=== PATIENT | male | born 1970 | race American Indian/Alaskan Native ===

== ENCOUNTER 2020-05-22 09:03 | Emergency (ER) | payer MEDICAID ==
[2020-05-22 09:09] VITALS: BP 149/94
[2020-05-22] MEDS ORDERED: KETOROLAC 30 MG/1 ML INJ IM ONE (09:44)
--- NOTE | 2020-05-22 09:45 | Emergency Department Report ---
ED Male HPI - General Chief complaint: Urogenital-Male Stated complaint: LT GROWNING PAIN Time Seen by Provider: 05/22/20 09:40 Source: patient Mode of arrival: Ambulatory Limitations: No Limitations - History of Present Illness Initial comments: 49-year-old -[place] male presents to the emergency room stating that he has a hernia to his left groin. Patient stated he was seen by Mary a few weeks ago and was referred to general surgeon had other procedures that needed to be done not followed up with general surgeon. Patient presents here excruciating pain. He has not taken anything for pain prior to arrival. He has a past medical history of hypertension diabetes depression, bipolar, anxiety schizophrenia and high cholesterol. He has no surgical history. MD Complaint: groin pain - Related Data Home Medications Medication Instructions Recorded Confirmed Last Taken [place] 600 mg PO HS 04/20/13 03/20/16 08/29/15 Citalopram [Celexa] 60 mg PO QDAY 05/01/13 03/20/16 08/29/15 [place] 300 mg PO DAILY 05/01/13 03/20/16 08/29/15 Escitalopram [Lexapro] 10 mg PO DAILY 09/01/14 03/20/16 08/29/15 Trazodone HCl [traZODone] 150 mg PO QHS 09/01/14 03/20/16 08/29/15 glipiZIDE [Glucotrol Xl] 5 mg PO TID 09/01/14 03/20/16 08/29/15 metFORMIN [Glucophage] 500 mg PO BID 09/01/14 03/20/16 08/29/15 risperiDONE [RisperDAL] 1 mg PO QHS 09/01/14 03/20/16 08/29/15 lisinopriL [Zestril TAB] 10 mg PO QDAY 03/21/16 03/21/16 03/18/16 09:00 Previous Rx's Medication Instructions Recorded Last Taken Type Ibuprofen [Motrin 800 MG tab] 800 mg PO Q8HR PRN #30 tablet 05/22/20 Unknown Rx Allergies Allergy/AdvReac Type Severity Reaction Status Date / Time No Known Allergies Allergy Verified 08/29/15 12:47 ED Review of Systems ROS: Stated complaint: LT GROWNING PAIN Other details as noted in HPI ED Past Medical Hx - Past Medical History Previous Medical History?: No Hx Hypertension: Yes Hx Diabetes: Yes Hx Psychiatric Treatment: Yes Additional medical history: DEPRESSION,BIPOLAR,ANXIETY SCHIZOPHRENIA. HIGH CHOLESTEROL - Surgical History Past Surgical History?: No - Social History Smoking Status: Never Smoker Substance Use Type: None - Medications Home Medications: Home Medications Medication Instructions Recorded Confirmed Last Taken Type [place] 600 mg PO HS 04/20/13 03/20/16 08/29/15 History Citalopram [Celexa] 60 mg PO QDAY 05/01/13 03/20/16 08/29/15 History [place] 300 mg PO DAILY 05/01/13 03/20/16 08/29/15 History Escitalopram [Lexapro] 10 mg PO DAILY 09/01/14 03/20/16 08/29/15 History Trazodone HCl [traZODone] 150 mg PO QHS 09/01/14 03/20/16 08/29/15 History glipiZIDE [Glucotrol Xl] 5 mg PO TID 09/01/14 03/20/16 08/29/15 History metFORMIN [Glucophage] 500 mg PO BID 09/01/14 03/20/16 08/29/15 History risperiDONE [RisperDAL] 1 mg PO QHS 09/01/14 03/20/16 08/29/15 History lisinopriL [Zestril TAB] 10 mg PO QDAY 03/21/16 03/21/16 03/18/16 09:00 History Ibuprofen [Motrin 800 MG tab] 800 mg PO Q8HR PRN #30 tablet 05/22/20 Unknown Rx ED Physical Exam - General Limitations: No Limitations General appearance: alert, in distress - Head Head exam: Present: atraumatic, normocephalic - Eye Eye exam: Present: normal appearance - ENT ENT exam: Present: mucous membranes moist - GI/Abdominal GI/Abdominal exam: Present: soft. Absent: distended, tenderness - exam: Present: testicular tenderness, circumcision. Absent: urethral discharge, scrotal swelling External exam: Present: swelling (Left groin) - Extremities Exam Extremities exam: Present: normal inspection - Back Exam Back exam: Present: normal inspection - Neurological Exam Neurological exam: Present: alert, oriented X3 - Psychiatric Psychiatric exam: Present: normal affect, normal mood - Skin Skin exam: Present: warm, dry, intact, normal color. Absent: rash ED Course Vital Signs 05/22/20 09:06 Temperature 98.0 F Pulse Rate 99 H Respiratory 17 Rate Blood Pressure 149/94 O2 Sat by Pulse 97 Oximetry - Procedure Description Procedures done: Left side hernia able to reduce with minimal discomfort. No testicular involvement mild tenderness to the left testicle. ED Medical Decision Making - Medical Decision Making 49-year-old -[place] male presents to the emergency room stating that he has a hernia to his left groin. Patient stated he was seen by Mary a few weeks ago and was referred to general surgeon had other procedures that needed to be done not followed up with general surgeon. Patient presents here excruciating pain. He has not taken anything for pain prior to arrival. He has a past medical history of hypertension diabetes depression, bipolar, anxiety schizophrenia and high cholesterol. He has no surgical history. Critical care attestation.: If time is entered above; I have spent that time in minutes in the direct care of this critically ill patient, excluding procedure time. ED Disposition Clinical Impression: Left groin hernia Disposition: DC-01 TO HOME OR SELFCARE Is pt being admited?: No Does the pt Need Aspirin: No Condition: Stable Instructions: Inguinal Hernia (ED) Additional Instructions: Please take pain medication as needed. I recommend a jockstrap to help hold the testicles up so there will be dangling and pulling on the hernia site. I have referred you to to general surgeons as they are able to assist you. Please sure to eat with taking the Motrin. Prescriptions: Ibuprofen [Motrin 800 MG tab] 800 mg PO Q8HR PRN #30 tablet PRN Reason: Pain , Severe (7-10) Referrals: GHADA FINN MD [Staff Physician] - 3-5 Days DALIA ALEXANDRE MD [Staff Physician] - 3-5 Days Forms: Work/School Release Form(ED)
[2020-05-22] MEDS ORDERED: KETOROLAC 30 MG/1 ML INJ ONE (09:47)
== END 2020-05-22 09:58 | disposition home or self-care (01) ==
LOC: ED 09:03
DX: K40.90 Unilateral inguinal hernia, without obstruction or gangrene, not specified as recurrent (principal); I10 Essential (primary) hypertension; E11.9 Type 2 diabetes mellitus without complications; F25.0 Schizoaffective disorder, bipolar type; Z79.899 Other long term (current) drug therapy; Z98.890 Other specified postprocedural states
CPT/HCPCS: 96372; 99282; J1885

== ENCOUNTER 2020-10-16 12:09 | Emergency (ER) | payer MEDICAID ==
[2020-10-16 12:21] VITALS: BP 132/89
--- NOTE | 2020-10-16 12:53 | Emergency Department Report ---
Blank Doc - Documentation Documentation: 50-year male that presents with worsening left groin hernia. Exam: Unable to reduce left groin hernia. 1- This initial assessment/diagnostic orders/clinical plan/ treatment(s) is/are subject to change based on pt's health status, clinical progression and re- assessment by fellow clinical providers in the ED. Further treatment and workup at subsequent clinical provers discretion. Patient/guardians urged not to elope from ED as their condition may be serious if not clinically assessed and managed. 2-labs
== END 2020-10-16 14:00 ==
LOC: ED 12:09
DX: K46.9 Unspecified abdominal hernia without obstruction or gangrene (principal); Z53.21 Procedure and treatment not carried out due to patient leaving prior to being seen by health care provider
CPT/HCPCS: 99282

== ENCOUNTER 2022-03-25 12:44 | Emergency (ER) | payer MEDICAID ==
--- NOTE | 2022-03-25 16:33 | Emergency Department Report ---
ED Psych HPI - General Chief Complaint: Psych Stated Complaint: BLOOD PRESSURE, SUICIDAL THOUGHTS Time Seen by Provider: 03/25/22 16:27 Source: patient Mode of arrival: Ambulatory - History of Present Illness Initial Comments: 51-year-old -[place]oz[place] male who admits to using crack cocaine, complains now being suicidal. Says now he wants to take a knife and stab himself admits that he used cocaine today. admits to drinking occasional alcohol MD Complaint: suicidal ideation, feels depressed -: Gradual Associated Psychiatric Symptoms: depression, suicidal ideation History of same: Yes Quality: intermittent, getting worse Improves With: none Worsens With: none Context: recent alcohol abuse, recent drug abuse Associated Symptoms: denies other symptoms Treatments Prior to Arrival: none If Self Harm: admits thoughts of - Related Data Home Medications Medication Instructions Recorded Confirmed Last Taken [place] Carbonate 600 mg PO HS 04/20/13 03/20/16 08/29/15 Citalopram [Celexa] 60 mg PO QDAY 05/01/13 03/20/16 08/29/15 [place] Carbon[place] 300 mg PO DAILY 05/01/13 03/20/16 08/29/15 Escitalopram [Lexapro] 10 mg PO DAILY 09/01/14 03/20/16 08/29/15 Trazodone HCl [traZODone] 150 mg PO QHS 09/01/14 03/20/16 08/29/15 glipiZIDE [Glucotrol Xl] 5 mg PO TID 09/01/14 03/20/16 08/29/15 metFORMIN [Glucophage] 500 mg PO BID 09/01/14 03/20/16 08/29/15 risperiDONE [RisperDAL] 1 mg PO QHS 09/01/14 03/20/16 08/29/15 lisinopriL [Zestril TAB] 10 mg PO QDAY 03/21/16 03/21/16 03/18/16 09:00 Previous Rx's Medication Instructions Recorded Last Taken Type Ibuprofen [Motrin 800 MG tab] 800 mg PO Q8HR PRN #30 tablet 05/22/[address] [DepaKOTE DR] 125 mg PO BID #60 tablet 03/28/22 Unknown Rx Escitalopram Oxalate [Lexapro] 5 mg PO QDAY #30 03/28/22 Unknown Rx Trazodone HCl 50 mg PO QHS #30 03/28/22 Unknown Rx risperiDONE [RisperDAL] 1 mg PO BID #60 03/28/22 Unknown Rx Allergies Allergy/AdvReac Type Severity Reaction Status Date / Time No Known Allergies Allergy Verified 08/29/15 12:47 ED Review of Systems ROS: Stated complaint: BLOOD PRESSURE, SUICIDAL THOUGHTS Other details as noted in HPI Constitutional: no symptoms reported Eyes: as per HPI ENT: as per HPI Respiratory: no symptoms reported Cardiovascular: as per HPI Endocrine: no symptoms reported Gastrointestinal: as per HPI Genitourinary: as per HPI Musculoskeletal: as per HPI Skin: as per HPI Neurological: as per HPI Psychiatric: as per HPI, suicidal thoughts ED Past Medical Hx - Past Medical History Hx Hypertension: Yes Hx Diabetes: Yes Hx Psychiatric Treatment: Yes Additional medical history: DEPRESSION,BIPOLAR,ANXIETY SCHIZOPHRENIA. HIGH CHOLESTEROL - Social History Smoking Status: Never Smoker Substance Use Type: None - Medications Home Medications: Home Medications Medication Instructions Recorded Confirmed Last Taken Type [place] Carbonate 600 mg PO HS 04/20/13 03/20/16 08/29/15 History Citalopram [Celexa] 60 mg PO QDAY 05/01/13 03/20/16 08/29/15 History [place] Carbon[place] 300 mg PO DAILY 05/01/13 03/20/16 08/29/15 History Escitalopram [Lexapro] 10 mg PO DAILY 09/01/14 03/20/16 08/29/15 History Trazodone HCl [traZODone] 150 mg PO QHS 09/01/14 03/20/16 08/29/15 History glipiZIDE [Glucotrol Xl] 5 mg PO TID 09/01/14 03/20/16 08/29/15 History metFORMIN [Glucophage] 500 mg PO BID 09/01/14 03/20/16 08/29/15 History risperiDONE [RisperDAL] 1 mg PO QHS 09/01/14 03/20/16 08/29/15 History lisinopriL [Zestril TAB] 10 mg PO QDAY 03/21/16 03/21/16 03/18/16 09:00 History Ibuprofen [Motrin 800 MG tab] 800 mg PO Q8HR PRN #30 tablet 05/22/[address] [DepaKOTE DR] 125 mg PO BID #60 tablet 03/28/22 Unknown Rx Escitalopram Oxalate [Lexapro] 5 mg PO QDAY #30 03/28/22 Unknown Rx Trazodone HCl 50 mg PO QHS #30 03/28/22 Unknown Rx risperiDONE [RisperDAL] 1 mg PO BID #60 03/28/22 Unknown Rx ED Physical Exam - General Limitations: No Limitations General appearance: alert, in no apparent distress - Head Head exam: Present: atraumatic, normocephalic - Eye Eye exam: Present: normal appearance - ENT ENT exam: Present: mucous membranes moist - Neck Neck exam: Present: normal inspection - Respiratory Respiratory exam: Present: normal lung sounds bilaterally. Absent: respiratory distress - Cardiovascular Cardiovascular Exam: Present: regular rate, normal rhythm. Absent: systolic murmur, diastolic murmur, rubs, gallop - GI/Abdominal GI/Abdominal exam: Present: soft, normal bowel sounds - Rectal Rectal exam: Present: deferred - Extremities Exam Extremities exam: Present: normal inspection - Back Exam Back exam: Present: normal inspection - Neurological Exam Neurological exam: Present: alert, oriented X3 - Psychiatric Psychiatric exam: Present: normal affect, normal mood - Skin Skin exam: Present: warm, dry, intact, normal color. Absent: rash ED Course Vital Signs 03/25/22 03/25/22 03/26/22 14:38 23:59 00:01 Temperature 98.6 F 98.4 F Pulse Rate 89 99 H Respiratory 20 Rate Blood Pressure 123/88 114/71 [Right] O2 Sat by Pulse 100 99 99 Oximetry 03/26/22 03/26/22 03/27/22 10:23 22:16 13:11 Temperature 98.4 F 98.8 F Pulse Rate 90 90 Respiratory 18 16 Rate Blood Pressure 119/89 121/87 [Right] O2 Sat by Pulse 100 99 97 Oximetry 03/27/22 03/28/22 20:07 10:58 Temperature 98.3 F 98.4 F Pulse Rate 110 H 104 H Respiratory 12 18 Rate Blood Pressure 128/86 107/74 [Right] O2 Sat by Pulse 99 98 Oximetry ED Medical Decision Making - Lab Data Result diagrams: 03/25/22 16:40 03/25/22 16:40 Critical care attestation.: If time is entered above; I have spent that time in minutes in the direct care of this critically ill patient, excluding procedure time. ED Disposition Clinical Impression: Schizophrenia, Cocaine abuse Disposition: HOME / SELF CARE / HOMELESS Is pt being admited?: No Does the pt Need Aspirin: No Condition: Stable Additional Instructions: Per psych provider, Penelope Carbajal, pt has been cleared by psych. Outpatient resources placed in d/c instructions. Professional and Agency Contacts To help [facility](06/03) [place] Crisis Line: Suicide Prevention Line: Crisis Text Line: Text START to 328773 Emergency: 911 Outpatient [facility] Behavioral Health Resources: [place]: [facility] [address] [place], [place] [address] [place]: [facility] [facility] [address] [place] [address] [facility] - [address] [place] [address] Monday thru Monday - 8am - 5pm [facility] Service Address: [address] [place] [address] [place]: [facility] Address: [address] [place] [address] Monday thru Monday- 7am-2pm [facility] Address: [address] [place] [address] Monday thru Monday: 8:30AM-5PM OUTPATIENT MENTAL HEALTH RESOURCES [facility], [facility] Roseanne Pacheco MD: [address] [facility] [address] [place] [address] [place] [address] [facility]: [facility] [address] [place] [address] [place] [address] [phone] [facility]: [facility] Healthcare: [address] [place] [address] [address] [place] [address] [place] [address] [facility] [id number] [facility]: Shreyas Ruggiero MD: [address] [facility] [address] [facility] [id number] [facility]: [address] [place] [address] [phone] [place] CRISIS AND ACCESS LINE: In case of an emergency, please contact the following numbers: [place] Crisis and Access Line: Number: Crisis Text Line: (Text START) Number: 862334 Suicide Prevention Line: Number: Emergency Number: 911 SUBSTANCE ABUSE PROGRAMS: [facility]: Location: [place], [place] [facility] Address: [address] [place] [address] [facility]: Address: [address] [place] [address] [facility]: Address: [address] [place] [address] [facility]: Address: [address] [place] [address] [facility] Address: [address] [place] [address]. Please contact above numbers to attempt placement into free based program. Medicaid Programs: [facility]: Address: [address] [place] [address] [facility]: Address: [address] [place] [address] Prescriptions: Trazodone HCl 50 mg PO QHS #[address] [DepaKOTE DR] 125 mg PO BID #60 tablet Escitalopram Oxalate [Lexapro] 5 mg PO QDAY #30 risperiDONE [RisperDAL] 1 mg PO BID #60 Referrals: ASHLEY LOREDO MD [Primary Care Provider] - 3-5 Days
[2022-03-25 16:55] LABS: Basophils % (Auto) 0.3 % (0.0-1.8); Eosinophils # (Auto) 0.1 K/mm3 (0.0-0.4); Eosinophils % (Auto) 1.7 % (0.0-4.3); Hematocrit 38.2 % (35.5-45.6); Hemoglobin 13.3 gm/dl (11.8-15.2); Lymphocytes # (Auto) 2.7 K/mm3 (1.2-5.4); Lymphocytes % (Auto) 40.1 % (13.4-35.0); Mean Corpuscular HGB Conc 35 % (32-34); Mean Corpuscular Volume 84 fl (84-94); Monocytes # (Auto) 0.7 K/mm3 (0.0-0.8); Monocytes % (Auto) 11.2 % (0.0-7.3); Platelet Count 289 K/mm3 (140-440); Red Blood Count 4.55 M/mm3 (3.65-5.03); Red Cell Distribution Width 13.3 % (13.2-15.2)
[2022-03-25 17:15] LABS: Alanine Aminotransferase 22 units/L (7-56); Albumin 4.5 g/dL (3.9-5); Blood Urea Nitrogen 14 mg/dL (9-20); Calcium 9.1 mg/dL (8.4-10.2); Hemolysis Index 27
[2022-03-25 17:17] LABS: BUN/Creatinine Ratio 20
[2022-03-26 00:21] LABS: Amphetamine Screen,Urine PRESUMPTIVE NEGATIVE; Benzodiazepines Screen,Urine PRESUMPTIVE NEGATIVE; Cannabinoid Screen,Urine PRESUMPTIVE NEGATIVE; Cocaine Screen,Urine PRESUMPTIVE POSITIVE; Methadone Screen,Urine PRESUMPTIVE NEGATIVE; Opiate Screen,Urine PRESUMPTIVE NEGATIVE
--- NOTE | 2022-03-26 10:02 | Consultation ---
History of Present Illness - Reason for Consult Consult date: 03/26/22 Reason for consult: SI, drug use - History of Present Psychiatric Illness The patient was seen today. He reports relapse on cocaine, severe depression, hallucinations, and suicidal thoughts with a plan to stab himself. He appears anxious. The patient says "I was doing real good. I was doing good and then this happened. I can not live like this. I just can't." The patient says he is very depressed. He says he has been hearing voices for the past two days. He says "a bunch of chatter, it is doing something to my head. I can't think." He says he has a history of PTSD, Bipolar, and Schizophrenia. The patient says he's been off his meds for about two months. He could not recall his meds. He says "I need something to help me. I can't do this by myself." Will start the patient on medication and recommend psychiatric inpatient treatment to stabilize him on meds. PAST PSYCHIATRIC HISTORY: Diagnoses: Schizophrenia, Bipolar Suicide attempts or Self-harm behavior: Denies Prior psychiatric hospitalizations: Yes Substance Abuse history: Crack Previous psychiatric medications tried: Could not recall Outpatient treatment: not in a few months PAST MEDICAL HISTORY: None reported Family Psychiatric History: None reported or documented SOCIAL HISTORY Marital Status: Single Living Arrangements: homeless Employment Status: Unemployed Access to guns/weapons: Denies Education: high school History of Abuse: Denies Legal History: Denies REVIEW OF SYSTEMS Constitutional: Negative for weight loss ENT: Negative for stridor Respiratory: Negative for cough or hemoptysis All other systems reviewed and are negative MENTAL STATUS General Appearance and Behavior: age appropriate, good eye contact, guarded Cooperation: Cooperative Psychomotor Behavior: within normal limits Mood: depressed Affect and affective range: Congruent with stated mood Thought Process: goal directed Thought Content: hallucinations, hopelessness, helplessness Speech: Normal tone and pace Suicidal Ideation: Yes Homicidal Ideation: Denies Hallucinations: Yes Delusions: None elicited Impulse Control: poor Insight and Judgment: Limited Memory: Limited Attention: Distracted Orientation: alert and oriented Diagnoses Schizophrenia Cocaine Use Disorder with Substance Induced Mood Treatment Plan 1013 Risperidone 0.5mg po BID Depakote DR 125mg po BID Trazodone 50mg po qhs Medical: per primary Disposition: recommend acute psychiatric treatment Will follow. Thanks Case staffed with Dr. Ewing Medications and Allergies Allergies Allergy/AdvReac Type Severity Reaction Status Date / Time No Known Allergies Allergy Verified 08/29/15 12:47 Home Medications Medication Instructions Recorded Confirmed Last Taken Type [place] Carbonate 600 mg PO HS 04/20/13 03/20/16 08/29/15 History Citalopram [Celexa] 60 mg PO QDAY 05/01/13 03/20/16 08/29/15 History [place] Carbonate 300 mg PO DAILY 05/01/13 03/20/16 08/29/15 History Escitalopram [Lexapro] 10 mg PO DAILY 09/01/14 03/20/16 08/29/15 History Trazodone HCl [traZODone] 150 mg PO QHS 09/01/14 03/20/16 08/29/15 History glipiZIDE [Glucotrol Xl] 5 mg PO TID 09/01/14 03/20/16 08/29/15 History metFORMIN [Glucophage] 500 mg PO BID 09/01/14 03/20/16 08/29/15 History risperiDONE [RisperDAL] 1 mg PO QHS 09/01/14 03/20/16 08/29/15 History lisinopriL [Zestril TAB] 10 mg PO QDAY 03/21/16 03/21/16 03/18/16 09:00 History Ibuprofen [Motrin 800 MG tab] 800 mg PO Q8HR PRN #30 tablet 05/22/20 Unknown Rx Mental Status Exam - Vital signs Last Vital Signs Temp 98.4 F 03/25/22 23:59 Pulse 99 H 03/25/22 23:59 Resp 20 03/25/22 23:59 BP 114/71 03/25/22 23:59 Pulse Ox 99 03/26/22 00:01 Results Result Diagrams: 03/25/22 16:40 03/25/22 16:40 Abnormal lab results 03/25/22 03/25/22 Range/Units 16:40 16:40 MCHC 35 H (32-34) % Lymph % (Auto) 40.1 H (13.4-35.0) % [place] % (Auto) 11.2 H (0.0-7.3) % Sodium 135 L (137-145) mmol/L Chloride 94.4 L (98-107) mmol/L Creatinine 0.7 L (0.8-1.3) mg/dL Glucose 244 H (75-100) mg/dL All other labs normal.
[2022-03-26] MEDS: DIVALPROEX DR 125 MG TAB PO SCH ×2 (10:53→22:34)
[2022-03-26] MEDS: risperiDONE 0.25 MG TAB PO SCH ×2 (10:53→22:34)
[2022-03-26] MEDS ORDERED: DEXTROSE 50% IN WATER (25GM) 50 ML SYRINGE IV PRN (15:31)
[2022-03-26] MEDS ORDERED: LORazepam 2 MG/ML VIAL IM PRN (15:32)
--- NOTE | 2022-03-26 15:33 | Event Note ---
Date: 03/26/22 The patient was evaluated in the emergency department for symptoms described in the history of present illness. He/she was evaluated in the context of the global COVID-19 pandemic, which necessitated consideration that the patient might be at risk for infection with the virus that causes COVID-19. Institutional protocols and algorithms that pertain to the evaluation of patients at risk for COVID-19 are in a state of rapid change based on information released by regulatory bodies including the CDC and federal and state organizations. These policies and algorithms were followed during the patient's care in the emergency department. Please note that these policies, procedures and recommendations changed on a rapid basis. Laboratory studies, vital signs, nursing documentation, ER documentation, and psychiatric documentation are reviewed and appreciated. Nursing team reports no acute events this morning or concerns. The patient is awake and ambulating and does not appear to be in any acute distress. Diabetic diet ordered. Sliding scale insulin ordered. Have requested that nursing team reconcile home medications. Tylenol aspirin and lithium levels were not ordered yesterday. We will add these on. Patient otherwise resting comfortably, and does not appear to be in any acute distress Vital Signs 03/25/22 03/25/22 03/26/22 14:38 23:59 00:01 Temperature 98.6 F 98.4 F Pulse Rate 89 99 H Respiratory 20 Rate Blood Pressure 123/88 114/71 [Right] O2 Sat by Pulse 100 99 99 Oximetry 03/26/22 10:23 Temperature 98.4 F Pulse Rate 90 Respiratory 18 Rate Blood Pressure 119/89 [Right] O2 Sat by Pulse 100 Oximetry Lab Results 03/25/22 03/25/22 03/25/22 Range/Units 16:40 16:40 16:40 WBC 6.7 (4.5-11.0) K/mm3 RBC 4.55 (3.65-5.03) M/mm3 Hgb 13.3 (11.8-15.2) gm/dl Hct 38.2 (35.5-45.6) % MCV 84 (84-94) fl MCH 29 (28-32) pg MCHC 35 H (32-34) % RDW 13.3 (13.2-15.2) % Plt Count 289 (140-440) K/mm3 Lymph % (Auto) 40.1 H (13.4-35.0) % [place] % (Auto) 11.2 H (0.0-7.3) % Eos % (Auto) 1.7 (0.0-4.3) % Baso % (Auto) 0.3 (0.0-1.8) % Lymph # (Auto) 2.7 (1.2-5.4) K/mm3 [place] # (Auto) 0.7 (0.0-0.8) K/mm3 Eos # (Auto) 0.1 (0.0-0.4) K/mm3 Baso # (Auto) 0.0 (0.0-0.1) K/mm3 Seg Neutrophils % 46.7 (40.0-70.0) % Seg Neutrophils # 3.1 (1.8-7.7) K/mm3 Sodium 135 L (137-145) mmol/L Potassium 4.4 (3.6-5.0) mmol/L Chloride 94.4 L (98-107) mmol/L Carbon Dioxide 25 (22-30) mmol/L Anion Gap 20 mmol/L BUN 14 (9-20) mg/dL Creatinine 0.7 L (0.8-1.3) mg/dL Estimated GFR > 60 ml/min BUN/Creatinine Ratio 20 % Glucose 244 H (75-100) mg/dL Calcium 9.1 (8.4-10.2) mg/dL Total Bilirubin 1.10 (0.1-1.2) mg/dL AST 24 (5-40) units/L ALT 22 (7-56) units/L Alkaline Phosphatase 112 (35-129) units/L Total Protein 7.4 (6.3-8.2) g/dL Albumin 4.5 (3.9-5) g/dL Albumin/Globulin Ratio 1.6 % Urine Opiates Screen Urine Methadone Screen Ur Barbiturates Screen Ur Phencyclidine Scrn Ur Amphetamines Screen U Benzodiazepines Scrn Urine Cocaine Screen U Marijuana (THC) Screen Drugs of Abuse Note Plasma/Serum Alcohol < 0.01 (0-0.07) % Coronavirus (PCR) (Negative) 03/26/22 03/26/22 Range/Units 00:01 09:40 WBC (4.5-11.0) K/mm3 RBC (3.65-5.03) M/mm3 Hgb (11.8-15.2) gm/dl Hct (35.5-45.6) % MCV (84-94) fl MCH (28-32) pg MCHC (32-34) % RDW (13.2-15.2) % Plt Count (140-440) K/mm3 Lymph % (Auto) (13.4-35.0) % [place] % (Auto) (0.0-7.3) % Eos % (Auto) (0.0-4.3) % Baso % (Auto) (0.0-1.8) % Lymph # (Auto) (1.2-5.4) K/mm3 [place] # (Auto) (0.0-0.8) K/mm3 Eos # (Auto) (0.0-0.4) K/mm3 Baso # (Auto) (0.0-0.1) K/mm3 Seg Neutrophils % (40.0-70.0) % Seg Neutrophils # (1.8-7.7) K/mm3 Sodium (137-145) mmol/L Potassium (3.6-5.0) mmol/L Chloride (98-107) mmol/L Carbon Dioxide (22-30) mmol/L Anion Gap mmol/L BUN (9-20) mg/dL Creatinine (0.8-1.3) mg/dL Estimated GFR ml/min BUN/Creatinine Ratio % Glucose (75-100) mg/dL Calcium (8.4-10.2) mg/dL Total Bilirubin (0.1-1.2) mg/dL AST (5-40) units/L ALT (7-56) units/L Alkaline Phosphatase (35-129) units/L Total Protein (6.3-8.2) g/dL Albumin (3.9-5) g/dL Albumin/Globulin Ratio % Urine Opiates Screen Presumptive negative Urine Methadone Screen Presumptive negative Ur Barbiturates Screen Presumptive negative Ur Phencyclidine Scrn Presumptive negative Ur Amphetamines Screen Presumptive negative U Benzodiazepines Scrn Presumptive negative Urine Cocaine Screen Presumptive positive U Marijuana (THC) Screen Presumptive negative Drugs of Abuse Note Disclamer Plasma/Serum Alcohol (0-0.07) % Coronavirus (PCR) Negative (Negative) Serum toxicology studies unremarkable. Specifically, Tylenol, aspirin and lithium levels are unremarkable Lab Results 03/25/22 03/25/22 03/25/22 Range/Units 16:40 16:40 16:40 WBC 6.7 (4.5-11.0) K/mm3 RBC 4.55 (3.65-5.03) M/mm3 Hgb 13.3 (11.8-15.2) gm/dl Hct 38.2 (35.5-45.6) % MCV 84 (84-94) fl MCH 29 (28-32) pg MCHC 35 H (32-34) % RDW 13.3 (13.2-15.2) % Plt Count 289 (140-440) K/mm3 Lymph % (Auto) 40.1 H (13.4-35.0) % [place] % (Auto) 11.2 H (0.0-7.3) % Eos % (Auto) 1.7 (0.0-4.3) % Baso % (Auto) 0.3 (0.0-1.8) % Lymph # (Auto) 2.7 (1.2-5.4) K/mm3 [place] # (Auto) 0.7 (0.0-0.8) K/mm3 Eos # (Auto) 0.1 (0.0-0.4) K/mm3 Baso # (Auto) 0.0 (0.0-0.1) K/mm3 Seg Neutrophils % 46.7 (40.0-70.0) % Seg Neutrophils # 3.1 (1.8-7.7) K/mm3 Sodium 135 L (137-145) mmol/L Potassium 4.4 (3.6-5.0) mmol/L Chloride 94.4 L (98-107) mmol/L Carbon Dioxide 25 (22-30) mmol/L Anion Gap 20 mmol/L BUN 14 (9-20) mg/dL Creatinine 0.7 L (0.8-1.3) mg/dL Estimated GFR > 60 ml/min BUN/Creatinine Ratio 20 % Glucose 244 H (75-100) mg/dL POC Glucose (70-105) mg/dL Calcium 9.1 (8.4-10.2) mg/dL Total Bilirubin 1.10 (0.1-1.2) mg/dL AST 24 (5-40) units/L ALT 22 (7-56) units/L Alkaline Phosphatase 112 (35-129) units/L Total Protein 7.4 (6.3-8.2) g/dL Albumin 4.5 (3.9-5) g/dL Albumin/Globulin Ratio 1.6 % Salicylates (2.8-20.0) mg/dL Urine Opiates Screen Urine Methadone Screen Acetaminophen (10.0-30.0) ug/mL Ur Barbiturates Screen Ur Phencyclidine Scrn Ur Amphetamines Screen U Benzodiazepines Scrn [place] (0.0-1.2) mmol/L Urine Cocaine Screen U Marijuana (THC) Screen Drugs of Abuse Note Plasma/Serum Alcohol < 0.01 (0-0.07) % Coronavirus (PCR) (Negative) 03/26/22 03/26/22 03/26/22 Range/Units 00:01 09:40 15:49 WBC (4.5-11.0) K/mm3 RBC (3.65-5.03) M/mm3 Hgb (11.8-15.2) gm/dl Hct (35.5-45.6) % MCV (84-94) fl MCH (28-32) pg MCHC (32-34) % RDW (13.2-15.2) % Plt Count (140-440) K/mm3 Lymph % (Auto) (13.4-35.0) % [place] % (Auto) (0.0-7.3) % Eos % (Auto) (0.0-4.3) % Baso % (Auto) (0.0-1.8) % Lymph # (Auto) (1.2-5.4) K/mm3 [place] # (Auto) (0.0-0.8) K/mm3 Eos # (Auto) (0.0-0.4) K/mm3 Baso # (Auto) (0.0-0.1) K/mm3 Seg Neutrophils % (40.0-70.0) % Seg Neutrophils # (1.8-7.7) K/mm3 Sodium (137-145) mmol/L Potassium (3.6-5.0) mmol/L Chloride (98-107) mmol/L Carbon Dioxide (22-30) mmol/L Anion Gap mmol/L BUN (9-20) mg/dL Creatinine (0.8-1.3) mg/dL Estimated GFR ml/min BUN/Creatinine Ratio % Glucose (75-100) mg/dL POC Glucose (70-105) mg/dL Calcium (8.4-10.2) mg/dL Total Bilirubin (0.1-1.2) mg/dL AST (5-40) units/L ALT (7-56) units/L Alkaline Phosphatase (35-129) units/L Total Protein (6.3-8.2) g/dL Albumin (3.9-5) g/dL Albumin/Globulin Ratio % Salicylates < 0.3 L (2.8-20.0) mg/dL Urine Opiates Screen Presumptive negative Urine Methadone Screen Presumptive negative Acetaminophen (10.0-30.0) ug/mL Ur Barbiturates Screen Presumptive negative Ur Phencyclidine Scrn Presumptive negative Ur Amphetamines Screen Presumptive negative U Benzodiazepines Scrn Presumptive negative [place] 0.1 (0.0-1.2) mmol/L Urine Cocaine Screen Presumptive positive U Marijuana (THC) Screen Presumptive negative Drugs of Abuse Note Disclamer Plasma/Serum Alcohol (0-0.07) % Coronavirus (PCR) Negative (Negative) 03/26/22 03/26/22 Range/Units 15:49 16:01 WBC (4.5-11.0) K/mm3 RBC (3.65-5.03) M/mm3 Hgb (11.8-15.2) gm/dl Hct (35.5-45.6) % MCV (84-94) fl MCH (28-32) pg MCHC (32-34) % RDW (13.2-15.2) % Plt Count (140-440) K/mm3 Lymph % (Auto) (13.4-35.0) % [place] % (Auto) (0.0-7.3) % Eos % (Auto) (0.0-4.3) % Baso % (Auto) (0.0-1.8) % Lymph # (Auto) (1.2-5.4) K/mm3 [place] # (Auto) (0.0-0.8) K/mm3 Eos # (Auto) (0.0-0.4) K/mm3 Baso # (Auto) (0.0-0.1) K/mm3 Seg Neutrophils % (40.0-70.0) % Seg Neutrophils # (1.8-7.7) K/mm3 Sodium (137-145) mmol/L Potassium (3.6-5.0) mmol/L Chloride (98-107) mmol/L Carbon Dioxide (22-30) mmol/L Anion Gap mmol/L BUN (9-20) mg/dL Creatinine (0.8-1.3) mg/dL Estimated GFR ml/min BUN/Creatinine Ratio % Glucose (75-100) mg/dL POC Glucose 310 H (70-105) mg/dL Calcium (8.4-10.2) mg/dL Total Bilirubin (0.1-1.2) mg/dL AST (5-40) units/L ALT (7-56) units/L Alkaline Phosphatase (35-129) units/L Total Protein (6.3-8.2) g/dL Albumin (3.9-5) g/dL Albumin/Globulin Ratio % Salicylates (2.8-20.0) mg/dL Urine Opiates Screen Urine Methadone Screen Acetaminophen 5.0 L (10.0-30.0) ug/mL Ur Barbiturates Screen Ur Phencyclidine Scrn Ur Amphetamines Screen U Benzodiazepines Scrn [place] (0.0-1.2) mmol/L Urine Cocaine Screen U Marijuana (THC) Screen Drugs of Abuse Note Plasma/Serum Alcohol (0-0.07) % Coronavirus (PCR) (Negative)
[2022-03-26] MEDS: INSULIN REGULAR, HUMAN 100 UNITS/1 ML SUB-Q SCH ×2 (16:01→22:37)
[2022-03-26] MEDS: metFORMIN 500 MG TAB PO SCH (22:34)
[2022-03-26] MEDS: traZODone 50 MG TAB PO SCH (22:34)
[2022-03-27] MEDS: metFORMIN 500 MG TAB PO SCH ×2 (10:09→21:59)
[2022-03-27] MEDS: DIVALPROEX DR 125 MG TAB PO SCH ×2 (10:09→21:58)
[2022-03-27] MEDS: risperiDONE 0.25 MG TAB PO SCH (10:09)
[2022-03-27] MEDS: INSULIN REGULAR, HUMAN 100 UNITS/1 ML SUB-Q SCH ×2 (10:09→21:51)
[2022-03-27] MEDS: LISINOPRIL 10 MG TAB PO SCH (10:09)
--- NOTE | 2022-03-27 10:55 | Progress Note ---
Subjective - Reason for Consult Consult date: 03/27/22 Reason for consult: SI, hallucinations - Chief Complaint Chief complaint: The patient was seen today. The patient still endorses suicidal thoughts. He says he is seeing things that looks like of his loved ones. He says he has given up and is tired of living. REVIEW OF SYSTEMS Constitutional: Negative for weight loss ENT: Negative for stridor Respiratory: Negative for cough or hemoptysis All other systems reviewed and are negative MENTAL STATUS General Appearance and Behavior: age appropriate, fair eye contact, guarded Cooperation: Cooperative Psychomotor Behavior: within normal limits Mood: depressed Affect and affective range: Congruent with stated mood Thought Process: goal directed Thought Content: hallucinations, hopelessness, helplessness Speech: Normal tone and pace Suicidal Ideation: Yes Homicidal Ideation: Denies Hallucinations: Yes Delusions: None elicited Impulse Control: poor Insight and Judgment: Limited Memory: Limited Attention: Distracted Orientation: alert and oriented Diagnoses Schizophrenia Cocaine Use Disorder with Substance Induced Mood Treatment Plan 1013 Increase Risperidone 1mg po BID Start Lexapro 5mg po daily Depakote DR 125mg po BID Trazodone 50mg po qhs Medical: per primary Disposition: recommend acute psychiatric treatment Will follow. Thanks Case staffed with Dr. Ewing Mental Status Exam - Vital signs Last Vital Signs Temp 98.8 F 03/26/22 22:16 Pulse 90 03/26/22 22:16 Resp 16 03/26/22 22:16 BP 121/87 03/26/22 22:16 Pulse Ox 99 03/26/22 22:16
[2022-03-27] MEDS ORDERED: risperiDONE 0.25 MG TAB PO SCH (11:00)
--- NOTE | 2022-03-27 12:27 | Event Note ---
Date: 03/27/22 The patient was evaluated in the emergency department for symptoms described in the history of present illness. He/she was evaluated in the context of the global COVID-19 pandemic, which necessitated consideration that the patient might be at risk for infection with the virus that causes COVID-19. Institutional protocols and algorithms that pertain to the evaluation of patients at risk for COVID-19 are in a state of rapid change based on information released by regulatory bodies including the CDC and federal and state organizations. These policies and algorithms were followed during the patient's care in the emergency department. Please note that these policies, procedures and recommendations changed on a rapid basis. Laboratory studies, vital signs, nursing documentation, ER documentation, and psychiatric documentation are reviewed and appreciated. Nursing team reports no acute events this morning or concerns. The patient is awake and ambulating and does not appear to be in any acute distress. The patient was deemed medically suitable for psychiatric disposition and placement during his initial ER evaluation. The patient continues to remain medically suitable for psychiatric placement and disposition. He is currently pending psychiatric placement. Vital Signs 03/25/22 03/25/22 03/26/22 14:38 23:59 00:01 Temperature 98.6 F 98.4 F Pulse Rate 89 99 H Respiratory 20 Rate Blood Pressure 123/88 114/71 [Right] O2 Sat by Pulse 100 99 99 Oximetry 03/26/22 03/26/22 10:23 22:16 Temperature 98.4 F 98.8 F Pulse Rate 90 90 Respiratory 18 16 Rate Blood Pressure 119/89 121/87 [Right] O2 Sat by Pulse 100 99 Oximetry Lab Results 03/25/22 03/25/22 03/25/22 Range/Units 16:40 16:40 16:40 WBC 6.7 (4.5-11.0) K/mm3 RBC 4.55 (3.65-5.03) M/mm3 Hgb 13.3 (11.8-15.2) gm/dl Hct 38.2 (35.5-45.6) % MCV 84 (84-94) fl MCH 29 (28-32) pg MCHC 35 H (32-34) % RDW 13.3 (13.2-15.2) % Plt Count 289 (140-440) K/mm3 Lymph % (Auto) 40.1 H (13.4-35.0) % [facility] % (Auto) 11.2 H (0.0-7.3) % Eos % (Auto) 1.7 (0.0-4.3) % Baso % (Auto) 0.3 (0.0-1.8) % Lymph # (Auto) 2.7 (1.2-5.4) K/mm3 [facility] # (Auto) 0.7 (0.0-0.8) K/mm3 Eos # (Auto) 0.1 (0.0-0.4) K/mm3 Baso # (Auto) 0.0 (0.0-0.1) K/mm3 Seg Neutrophils % 46.7 (40.0-70.0) % Seg Neutrophils # 3.1 (1.8-7.7) K/mm3 Sodium 135 L (137-145) mmol/L Potassium 4.4 (3.6-5.0) mmol/L Chloride 94.4 L (98-107) mmol/L Carbon Dioxide 25 (22-30) mmol/L Anion Gap 20 mmol/L BUN 14 (9-20) mg/dL Creatinine 0.7 L (0.8-1.3) mg/dL Estimated GFR > 60 ml/min BUN/Creatinine Ratio 20 % Glucose 244 H (75-100) mg/dL POC Glucose (70-105) mg/dL Calcium 9.1 (8.4-10.2) mg/dL Total Bilirubin 1.10 (0.1-1.2) mg/dL AST 24 (5-40) units/L ALT 22 (7-56) units/L Alkaline Phosphatase 112 (35-129) units/L Total Protein 7.4 (6.3-8.2) g/dL Albumin 4.5 (3.9-5) g/dL Albumin/Globulin Ratio 1.6 % Salicylates (2.8-20.0) mg/dL Urine Opiates Screen Urine Methadone Screen Acetaminophen (10.0-30.0) ug/mL Ur Barbiturates Screen Ur Phencyclidine Scrn Ur Amphetamines Screen U Benzodiazepines Scrn [place] (0.0-1.2) mmol/L Urine Cocaine Screen U Marijuana (THC) Screen Drugs of Abuse Note Plasma/Serum Alcohol < 0.01 (0-0.07) % Coronavirus (PCR) (Negative) 03/26/22 03/26/22 03/26/22 Range/Units 00:01 09:40 15:49 WBC (4.5-11.0) K/mm3 RBC (3.65-5.03) M/mm3 Hgb (11.8-15.2) gm/dl Hct (35.5-45.6) % MCV (84-94) fl MCH (28-32) pg MCHC (32-34) % RDW (13.2-15.2) % Plt Count (140-440) K/mm3 Lymph % (Auto) (13.4-35.0) % [facility] % (Auto) (0.0-7.3) % Eos % (Auto) (0.0-4.3) % Baso % (Auto) (0.0-1.8) % Lymph # (Auto) (1.2-5.4) K/mm3 [facility] # (Auto) (0.0-0.8) K/mm3 Eos # (Auto) (0.0-0.4) K/mm3 Baso # (Auto) (0.0-0.1) K/mm3 Seg Neutrophils % (40.0-70.0) % Seg Neutrophils # (1.8-7.7) K/mm3 Sodium (137-145) mmol/L Potassium (3.6-5.0) mmol/L Chloride (98-107) mmol/L Carbon Dioxide (22-30) mmol/L Anion Gap mmol/L BUN (9-20) mg/dL Creatinine (0.8-1.3) mg/dL Estimated GFR ml/min BUN/Creatinine Ratio % Glucose (75-100) mg/dL POC Glucose (70-105) mg/dL Calcium (8.4-10.2) mg/dL Total Bilirubin (0.1-1.2) mg/dL AST (5-40) units/L ALT (7-56) units/L Alkaline Phosphatase (35-129) units/L Total Protein (6.3-8.2) g/dL Albumin (3.9-5) g/dL Albumin/Globulin Ratio % Salicylates < 0.3 L (2.8-20.0) mg/dL Urine Opiates Screen Presumptive negative Urine Methadone Screen Presumptive negative Acetaminophen (10.0-30.0) ug/mL Ur Barbiturates Screen Presumptive negative Ur Phencyclidine Scrn Presumptive negative Ur Amphetamines Screen Presumptive negative U Benzodiazepines Scrn Presumptive negative [place] 0.1 (0.0-1.2) mmol/L Urine Cocaine Screen Presumptive positive U Marijuana (THC) Screen Presumptive negative Drugs of Abuse Note Disclamer Plasma/Serum Alcohol (0-0.07) % Coronavirus (PCR) Negative (Negative) 03/26/22 03/26/22 03/26/22 Range/Units 15:49 16:01 22:28 WBC (4.5-11.0) K/mm3 RBC (3.65-5.03) M/mm3 Hgb (11.8-15.2) gm/dl Hct (35.5-45.6) % MCV (84-94) fl MCH (28-32) pg MCHC (32-34) % RDW (13.2-15.2) % Plt Count (140-440) K/mm3 Lymph % (Auto) (13.4-35.0) % [facility] % (Auto) (0.0-7.3) % Eos % (Auto) (0.0-4.3) % Baso % (Auto) (0.0-1.8) % Lymph # (Auto) (1.2-5.4) K/mm3 [facility] # (Auto) (0.0-0.8) K/mm3 Eos # (Auto) (0.0-0.4) K/mm3 Baso # (Auto) (0.0-0.1) K/mm3 Seg Neutrophils % (40.0-70.0) % Seg Neutrophils # (1.8-7.7) K/mm3 Sodium (137-145) mmol/L Potassium (3.6-5.0) mmol/L Chloride (98-107) mmol/L Carbon Dioxide (22-30) mmol/L Anion Gap mmol/L BUN (9-20) mg/dL Creatinine (0.8-1.3) mg/dL Estimated GFR ml/min BUN/Creatinine Ratio % Glucose (75-100) mg/dL POC Glucose 310 H 157 H (70-105) mg/dL Calcium (8.4-10.2) mg/dL Total Bilirubin (0.1-1.2) mg/dL AST (5-40) units/L ALT (7-56) units/L Alkaline Phosphatase (35-129) units/L Total Protein (6.3-8.2) g/dL Albumin (3.9-5) g/dL Albumin/Globulin Ratio % Salicylates (2.8-20.0) mg/dL Urine Opiates Screen Urine Methadone Screen Acetaminophen 5.0 L (10.0-30.0) ug/mL Ur Barbiturates Screen Ur Phencyclidine Scrn Ur Amphetamines Screen U Benzodiazepines Scrn [place] (0.0-1.2) mmol/L Urine Cocaine Screen U Marijuana (THC) Screen Drugs of Abuse Note Plasma/Serum Alcohol (0-0.07) % Coronavirus (PCR) (Negative) 03/27/22 Range/Units 10:08 WBC (4.5-11.0) K/mm3 RBC (3.65-5.03) M/mm3 Hgb (11.8-15.2) gm/dl Hct (35.5-45.6) % MCV (84-94) fl MCH (28-32) pg MCHC (32-34) % RDW (13.2-15.2) % Plt Count (140-440) K/mm3 Lymph % (Auto) (13.4-35.0) % [facility] % (Auto) (0.0-7.3) % Eos % (Auto) (0.0-4.3) % Baso % (Auto) (0.0-1.8) % Lymph # (Auto) (1.2-5.4) K/mm3 [facility] # (Auto) (0.0-0.8) K/mm3 Eos # (Auto) (0.0-0.4) K/mm3 Baso # (Auto) (0.0-0.1) K/mm3 Seg Neutrophils % (40.0-70.0) % Seg Neutrophils # (1.8-7.7) K/mm3 Sodium (137-145) mmol/L Potassium (3.6-5.0) mmol/L Chloride (98-107) mmol/L Carbon Dioxide (22-30) mmol/L Anion Gap mmol/L BUN (9-20) mg/dL Creatinine (0.8-1.3) mg/dL Estimated GFR ml/min BUN/Creatinine Ratio % Glucose (75-100) mg/dL POC Glucose 289 H (70-105) mg/dL Calcium (8.4-10.2) mg/dL Total Bilirubin (0.1-1.2) mg/dL AST (5-40) units/L ALT (7-56) units/L Alkaline Phosphatase (35-129) units/L Total Protein (6.3-8.2) g/dL Albumin (3.9-5) g/dL Albumin/Globulin Ratio % Salicylates (2.8-20.0) mg/dL Urine Opiates Screen Urine Methadone Screen Acetaminophen (10.0-30.0) ug/mL Ur Barbiturates Screen Ur Phencyclidine Scrn Ur Amphetamines Screen U Benzodiazepines Scrn [place] (0.0-1.2) mmol/L Urine Cocaine Screen U Marijuana (THC) Screen Drugs of Abuse Note Plasma/Serum Alcohol (0-0.07) % Coronavirus (PCR) (Negative)
[2022-03-27] MEDS: ESCITALOPRAM 10 MG TAB PO SCH (12:35)
[2022-03-27] MEDS: traZODone 50 MG TAB PO SCH (21:58)
[2022-03-27] MEDS: risperiDONE 1 MG TAB PO SCH (21:59)
[2022-03-28] MEDS: INSULIN REGULAR, HUMAN 100 UNITS/1 ML SUB-Q SCH (06:00)
--- NOTE | 2022-03-28 09:46 | Progress Note ---
Subjective - Reason for Consult Consult date: 03/28/22 Reason for consult: SI - Chief Complaint Chief complaint: The patient was seen today. He says he feels much better. The patient also says he slept well. He denies SI/HI or hallucinations of any kind. No longer recommend inpatient treatment for this patient. He can now be managed on an outpatient basis. REVIEW OF SYSTEMS Constitutional: Negative for weight loss ENT: Negative for stridor Respiratory: Negative for cough or hemoptysis All other systems reviewed and are negative MENTAL STATUS General Appearance and Behavior: age appropriate, good eye contact, calm and cooperative Cooperation: Cooperative Psychomotor Behavior: within normal limits Mood: much better Affect and affective range: Congruent with stated mood Thought Process: goal directed Thought Content: None Speech: Normal tone and pace Suicidal Ideation: Denies Homicidal Ideation: Denies Hallucinations: Denies Delusions: None elicited Impulse Control: Limited Insight and Judgment: Limited Memory: Limited Attention: Attentive Orientation: alert and oriented Diagnoses Schizophrenia Cocaine Use Disorder with Substance Induced Mood Treatment Plan d/c 1013 Risperidone 1mg po BID Lexapro 5mg po daily Depakote DR 125mg po BID Trazodone 50mg po qhs Medical: per primary Disposition: Do not recommend acute psychiatric treatment. The patient understands that if SI/HI or any fear of endangerment arise he is to seek immediate assistance. The decal applier is to further discuss safety plan. The patient to abstain from all illicit drug use. The decal applier to give him all necessary resources including drug rehab, assisted Will sign off. Thanks Case staffed with Dr. Ewing Mental Status Exam - Vital signs Last Vital Signs Temp 98.3 F 03/27/22 20:07 Pulse 110 H 03/27/22 20:07 Resp 12 03/27/22 20:07 BP 128/86 03/27/22 20:07 Pulse Ox 99 03/27/22 20:07
[2022-03-28] MEDS: LISINOPRIL 10 MG TAB PO SCH (09:54)
[2022-03-28] MEDS: ESCITALOPRAM 10 MG TAB PO SCH (09:54)
[2022-03-28] MEDS: risperiDONE 1 MG TAB PO SCH (09:54)
[2022-03-28] MEDS: metFORMIN 500 MG TAB PO SCH (09:54)
[2022-03-28] MEDS: DIVALPROEX DR 125 MG TAB PO SCH (09:54)
[2022-03-28 10:58] VITALS: BP 107/74
== END 2022-03-28 12:51 | disposition home or self-care (01) ==
LOC: ED 12:44
DX: F20.9 Schizophrenia, unspecified (principal); F14.10 Cocaine abuse, uncomplicated; I10 Essential (primary) hypertension; E11.9 Type 2 diabetes mellitus without complications; Z20.822 Contact with and (suspected) exposure to COVID-19
CPT/HCPCS: 36415; 80053; 80178; 80307; 82962; 85025; 96372; 99284; U0003; 80320; Q9967; G0480; J1815